=== PATIENT | male | born 1945 | race Caucasian/White ===

== ENCOUNTER 2025-06-07 15:31 | Emergency (ER) | payer BC, SELFPAY ==
[2025-06-07 15:33] VITALS: BP 165/90
[2025-06-07 16:08] LABS: Hematocrit 50.9 % (39.0-52.0); Hemoglobin 16.8 g/dL (13.0-18.0); Mean Corp Hgb Conc. 33.0 g/dL (33.0-37.0); Mean Corpuscular Volume 90.9 fL (80.0-94.0); Nucleated Red Blood Cells % 0 % (-); Platelet Count 246 10^3/uL (130-400); Red Cell Dist. Width 14.3 % (11.5-14.5)
[2025-06-07 16:19] VITALS: BP 162/81
[2025-06-07 16:24] LABS: ALT (SGPT) 17 U/L (0-50); AST (SGOT) 36 U/L (17-59); Albumin 4.6 g/dl (3.5-5.0); Alkaline Phosphatase 48 U/L (38-126); Blood Urea Nitrogen 53 mg/dl (9-20); Calcium 10.4 mg/dl (8.4-10.2); Carbon Dioxide 22 mmol/L (22-30); Chloride 109 mmol/L (98-107); Glucose 163 mg/dl (70-99); Potassium 4.6 mmol/L (3.5-5.1); Sodium 141 mmol/L (135-145); Total Protein 7.3 g/dl (6.3-8.2); eGFR 24.32
--- NOTE | 2025-06-07 16:42 | ED.GENMED ---
History of Present Illness
General
Chief Complaint: Fall
Source: patient
Exam Limitations: none
Time Seen by Provider: 06/07/25 16:41
Nursing documentation reviewed up to this point in time: agreed with
History of Present Illness
History of Present Illness:
80-year-old male with history HTN, HLD, chronic renal failure, NIDDM, neuropathy, presents for right shoulder pain after fall, near syncope on toilet.
Patient presents with daughter Tammy at bedside. They live in [place]. They flew from [place] yesterday with a connecting flight, patient doing much more walking and activity than usual. On arrival here they had a meal of lasagna, bread and sweet
tea. Shortly after dinner he felt dizzy with the room spinning and having to hold onto things to ambulate, he states he woke up off and on throughout the night with the dizziness persisting. He also had trouble focusing when attempting to read
things on his phone.
When he got up at 6 AM to go to the bathroom as he was walking he had to hold on to things due to dizziness, he sat on the toilet to have a bowel movement and had a 'brief loss of consciousness' and fell forward onto his right shoulder. He
states it took him about 5 minutes to finally get up and he showered. The pain in his right shoulder arms and right ribs have increased throughout the day so he went to urgent care. They sent him here with concern for the brief loss of
consciousness and the dizziness.
The dizziness is much improved, his vision has been normal since awakening
He is unable to lift his right arm completely since the fall. His right arm is sore and right ribs hurt. Denies neck or back pain or any other injury
Denies CP or SOB. Denies abd pain/n/v/d/c. Did have a bowel movement prior to fall.
Denies headache, not anticoagulated
Past History
Past History
ED Past Medical History: HTN, Hypercholesterolemia, NIDDM, Renal failure and Other (Neuropathy)
Social History
Tobacco: Non-smoker
Alcohol: Occasional
Personal:
Living: with family
Employment: Retired
Review of Systems
Review of Systems
Allergies reviewed?: Yes
All Other Systems: ROS reviewed and negative except as documented in HPI and ROS
Constitutional: Denies fever or fatigue
Respiratory: Denies trouble breathing (Uses BIPAP)
Cardiac: Denies chest pain
ABD/GI: Denies abdominal pain or nausea
Skin: Reports no symptoms
Neurological: Reports dizzy and other (Neuropathy feet); Denies headache or weakness
Phy Exam
Physical Exam
Physical Exam:
GENERAL: No acute distress. A&Ox3.
CONSTITUTIONAL: Afebrile.
EYES: clear, conjunctivae normal, PERRL, EOMs intact.
ENMT: moist mucus membranes, Pharynx nl TMs normal,
RESPIRATORY: Regular respirations, nonlabored, lungs clear.
CARDIOVASCULAR: Regular rate and rhythm, no murmurs, no rubs.
GI: Soft, obese, nontender, normal BS
MUSCULOSKELETAL: No spinal bony tenderness. Tender to palpate over mid lateral right rib. Tender to palpate about the right shoulder. Clavicle is nontender, scapula is nontender, the rest of the arm is nontender and full range of motion from the
elbow down. Patient is able to raise the arm forward almost completely. Well perfused.
SKIN: Warm, dry, pink
PSYCH: Normal mood and affect. Well kept, interactive and appropriate
NEUROLOGIC: Awake, alert and oriented. Speech clear. Cranial nerves II through XII intact. No focal neurological deficits. Strength equal throughout.
Course
Orders/Labs/Results
Orders:
Orders
06/07/25 15:37
Electrocardiogram (*1) Urgent
Reason for Study: Vertigo / Dizzy
EKG- Treatment ONCE
06/07/25 15:52
Complete Blood Count/With Diff Urgent
Comprehensive Metabolic Panel Urgent
06/07/25 16:52
CT Head W/o Iv Contrast Urgent
Comment:
Reason For Exam: dizziness
06/07/25 17:07
Shoulder, Right, Trauma [CR Shoulder, Trauma - Right] Urgent
Comment:
Reason For Exam: pain after fall
06/07/25 17:24
Ribs, Right 3 View W/PA Chest [CR Ribs-right 3 Vw W/pa Chest*] Urgent
Comment:
Reason For Exam: pain mid lateral rib after fall
06/07/25 19:55
Dexamethasone [Decadron] 10 mg PO NOW STA
Meclizine [Antivert] 25 mg PO NOW STA
Abnormal Lab Results
06/07/25
15:52
Lymphocytes % 16.9 L %
(20.5-51.1)
Chloride 109 H mmol/L
(98-107)
BUN 53 H mg/dl
(9-20)
Creatinine 2.6 H mg/dL
(0.7-1.3)
Glucose 163 H mg/dl
(70-99)
Calcium 10.4 H mg/dl
(8.4-10.2)
06/07/25 15:52
06/07/25 15:52
Vital Signs
Initial and Last Documented VS:
Initial Vital Signs
Temp Pulse Resp BP Pulse Ox
97.8 F 80 16 165/90 95
06/07/25 15:33 06/07/25 15:33 06/07/25 15:33 06/07/25 15:33 06/07/25 15:33
Last Documented Vital Signs
Temp Pulse Resp BP Pulse Ox
97.8 F 74 12 153/88 95
06/07/25 15:33 06/07/25 18:00 06/07/25 17:30 06/07/25 18:33 06/07/25 18:00
MDM/Problems Addressed
Differential Diagnosis Includes:
BPPV, labyrinthitis, vestibular neuritis, TIA
Vasovagal reaction, dehydration, electrolyte imbalance
MDM/Problems Addressed:
80-year-old male with history HTN, HLD, chronic renal failure, NIDDM, neuropathy, presents for right shoulder pain after fall, near syncope on toilet.
Patient presents with daughter Tammy at bedside. They live in [place]. They flew from [place] yesterday with a connecting flight, patient doing much more walking and activity than usual. On arrival here they had a meal of lasagna, bread and sweet
tea. Shortly after dinner he felt dizzy with the room spinning and having to hold onto things to ambulate, he states he woke up off and on throughout the night with the dizziness persisting. He also had trouble focusing when attempting to read
things on his phone.
When he got up at 6 AM to go to the bathroom as he was walking he had to hold on to things due to dizziness, he sat on the toilet to have a bowel movement and had a 'brief loss of consciousness' and fell forward onto his right shoulder. He
states it took him about 5 minutes to finally get up and he showered. The pain in his right shoulder arms and right ribs have increased throughout the day so he went to urgent care. They sent him here with concern for the brief loss of
consciousness and the dizziness.
The dizziness is much improved, his vision has been normal since awakening
He is unable to lift his right arm completely since the fall. His right arm is sore and right ribs hurt. Denies neck or back pain or any other injury
Denies CP or SOB. Denies abd pain/n/v/d/c. Did have a bowel movement prior to fall.
Denies headache, not anticoagulated
EKG sinus rhythm with RBBB, no comparison EKG available
5:00 p.m.
CBC unremarkable
CMP: BUN/creat 53/2.6
Patient's has previous labs from 06/03/25 on phone: Creat 3.28, BUN 58 his electrolytes were normal liver functions were normal CBC was normal
Right shoulder x-ray initially read by this examiner, no acute abnormality, there is some calcification indicating calcific bursitis or tendinitis
Right rib x-ray and chest initially read by this examiner: No acute abnormality noted.
Awaiting head CT.
Feeling 'a little dizzy,' watching TV and states vision is 'normal.'
7:50 PM:
Head CT showing nothing acute
1 dose of Antivert for the dizziness and Decadron for the right shoulder calcific bursitis given here today
Patient out of bed and ambulating well, dizziness is gone
Prescription for Antivert and prednisone sent to his pharmacy
He is planning on flying back to [place] in 2 days
Discharged to care of daughter, patient ambulated out with normal gait at discharge
Final diagnosis: BPPV, soft tissue injury right shoulder with calcific tendinopathy
*Pulse Oximetry
SaO2: 95
Oxygen Mode of Delivery: Room air
Patient hypoxic: no
*EKG
EKG Intrepretation Date: 06/07/25
Interpretation: abnormal
Comparison EKG: no comparison EKG present
Heart Rate: 73
Rate: normal
Rhythm: sinus
[place]: left axis deviation
Interval: normal interval
QRS Pattern: right bundle branch block
Ischemia: no ischemia
*Critical Care Note
Total Time (30-74mins, 75-104mins- exclusive of procedures): Not Applicable
ED Attending Note
-
Portions of this chart may have been created with voice recognition software.� Occasional wrong word or��sound alike� substitutions may have occurred due to the inherent limitations of voice recognition software.
Discharge Plan
Departure
Patient Disposition: Home (Routine Discharge)
Date of Disposition: 06/07/25
Time of Disposition: 19:51
Patient with high blood pressure during this ER visit?: No
Condition: Good
Discharge Problem:
Fall from slip, trip, or stumble, Vasovagal episode, Calcific tendinitis of right shoulder region, Benign paroxysmal positional vertigo
Instructions: Vertigo (a type of dizziness), Shoulder Bursitis Exercises, Near Fainting (DC), Exercises (maneuvers) for benign paroxysmal positional vertigo, Shoulder pain - ED (DC)
Prescriptions:
New
meclizine 25 mg tablet
25 mg PO QID PRN (Reason: dizziness) Qty: 20 0RF
prednisone 20 mg tablet
40 mg PO DAILY Qty: 6 0RF
No Action
gabapentin 600 mg tablet
600 mg PO QID
atorvastatin 10 mg tablet
10 mg PO DAILY
chlorthalidone 25 mg tablet
25 mg PO DAILY
tamsulosin 0.4 mg capsule
0.4 mg PO DAILY
glimepiride 4 mg tablet
4 mg PO DAILY
omeprazole 20 mg capsule,delayed release(DR/EC)
20 mg PO DAILY
allopurinol 300 mg tablet
300 mg PO DAILY
fluticasone propionate 50 mcg/actuation spray,suspension
2 spray INTRANASAL R DAILYPRN PRN (Reason: stuffy nose)
levothyroxine 112 mcg tablet
112 mcg PO DAILY
omega-3 acid ethyl esters 1 gram capsule
2 g PO BID
fenofibrate nanocrystallized 145 mg tablet
145 mg PO DAILY
Januvia 50 mg tablet
50 mg PO DAILY
amlodipine-olmesartan 5-40 mg tablet
1 tab PO QPM
alogliptin 6.25 mg tablet
6.25 mg PO DAILY
Ozempic 2 mg/dose (8 mg/3 mL) pen injector
2 mg SC PATRICIO
Referrals:
LUIS ARMANDO NICE [Other] - Follow up in 5-7 days
Activity Restrictions/Additional Instructions:
As we discussed, you have a calcification in the tendon of your shoulder which is most likely the cause of your pain since you aggravated it with the fall.
You were given a steroid, Decadron 10 mg here today. I sent a prescription for prednisone to your pharmacy, pick it up tomorrow and take 40 mg a day for the next 3 days
I believe you have benign vertigo, I sent a prescription to your pharmacy for Antivert (meclizine) to use as needed for dizziness.
See your doctor for recheck in 5 to 7 days when you return to [place]
Interventions
Interventions:
*Risk Screen - Suicide Last Done: 06/07/25 15:40
*General Assessment Last Done: 06/07/25 18:34
*Neglect/Abuse Screening Last Done: 06/07/25 15:40
*ED- Fall Risk Assessment Last Done: 06/07/25 18:34
*ED COVID-19 Vaccine History Last Done: 06/07/25 18:34
ED- Neurological Assessment Last Done: 06/07/25 18:37
Discharge Date and Time
Print Language: OCCITAN
[2025-06-07 17:00] VITALS: BP 176/84
[2025-06-07 18:31] VITALS: BP 153/88
[2025-06-07 18:32] VITALS: BMI 35.9
[2025-06-07 18:33] VITALS: BP 153/88
[2025-06-07 19:00] VITALS: BP 165/82
[2025-06-07] MEDS: DECADRON 10 MG PO (20:01)
[2025-06-07] MEDS: ANTIVERT 25 MG PO (20:02)
== END 2025-06-07 20:14 | disposition home or self-care (01) ==
LOC: EMR 15:31
PROVIDERS: EMERGENCY PHYSICIAN Emergency Medicine
DX: H81.10 Benign paroxysmal vertigo, unspecified ear (principal); S49.91XA Unspecified injury of right shoulder and upper arm, initial encounter; R07.81 Pleurodynia; W18.11XA Fall from or off toilet without subsequent striking against object, initial encounter; M75.31 Calcific tendinitis of right shoulder; E11.22 Type 2 diabetes mellitus with diabetic chronic kidney disease; I12.9 Hypertensive chronic kidney disease with stage 1 through stage 4 chronic kidney disease, or unspecified chronic kidney disease; N18.9 Chronic kidney disease, unspecified; E78.00 Pure hypercholesterolemia, unspecified; I45.10 Unspecified right bundle-branch block
CPT/HCPCS: 99284; 70450; 71101; 73030; 80053; 85025; 93005